=== PATIENT | female | born 1960 | race Caucasian/White ===

== ENCOUNTER 2023-05-11 06:09 | Emergency (ER) | payer OTHER, SELFPAY ==
[2023-05-11] VITALS (7 sets, daily range): BP systolic 119–139; BP diastolic 58–63; PULSE 56–62; RESP 16–32; TEMP 36.4; O2SAT 94–99; BMI 22.7
--- NOTE | 2023-05-11 06:12 | ED.GENADULT ---
HPI - General Adult <DO Krystle Juarez Last Filed: 05/12/23 04:02> General Chief complaint: Syncope Stated complaint: fell hit head on tile floor Time Seen by Provider: 05/11/23 06:12 History of Present Illness HPI narrative: 63F without significant chronic medical history presents with her in the chief complaint of a near syncopal episode this morning and resultant head and face injury. She had been feeling under the weather for the past few days and really has not gotten out of bed much. She has a poor appetite and has had little to eat or drink. She denies any significant fever or chills, no chest pain or shortness of breath but states upon waking this morning at about 530 she felt some discomfort under her ribs and had been dizzy and lightheaded. Upon standing and attempting to use the restroom this morning she felt lightheaded and fell forward striking her face on the ground. She has some dried blood coming from both nostrils, mild headache and some left lateral neck pain. She denies any ongoing chest pain or shortness of breath. She denies any extremity injury. She does not take blood thinners. She is able to breathe through both nostrils. Related Data Previous Rx's Medication Instructions Recorded ondansetron 4 mg disintegrating 4 mg PO Q8H PRN nausea and 05/11/23 tablet vomiting #10 tabs Allergies Allergy/AdvReac Type Severity Reaction Status Date / Time No Known Drug Allergies Allergy Verified 05/11/23 06:34 Review of Systems <DO Krystle Juarez Last Filed: 05/12/23 04:02> Review of Systems Narrative: GENERAL: See HPI HEENT: See HPI RESPIRATORY: See HPI CARDIOVASCULAR: See HPI GASTROINTESTINAL: Denies nausea, vomiting, abdominal pain, diarrhea, constipation, melena. : Denies dysuria, frequency, incontinence, hematuria, urinary retention. MUSCULOSKELETAL: denies weakness, joint pain, or bony pain SKIN: Denies rash, skin lesions, or other NEUROLOGIC: Denies weakness, headache, numbness, change in speech, confusion, seizures, incoordination. PSYCHIATRIC: No concerning psychosocial issues. 12 point review of systems is negative except for those stated above Patient History <DO Krystle Juarez Last Filed: 05/12/23 04:02> Medical History (Updated 05/11/23 @ 08:13 by Lynette Orr DO) Hypothyroid Social History Smoking Status: Never smoker Exam <Edmundo Hernandez DO - Last Filed: 05/12/23 04:02> Narrative Exam Narrative: GENERAL: [63] year old patient appears stated age. Well-developed patient, in mild distress. GCS 15 HEAD: Noted bruising and swelling overlying the bridge of her nose, no other obvious swelling, contusions, lacerations or abrasions, no evidence of depressed skull fracture EYES: Pupils equal round and reactive. No hyphema Extraocular motions intact. No scleral icterus. No injection or drainage. ENT: Swelling over bridge of nose as noted above, fresh clots in bilateral nares, no active bleeding, no obvious nasal septal hematoma. No hemotympanum. Throat without erythema, tonsillar hypertrophy or exudate. Airway patent. NECK: No midline neck pain, step-offs or crepitance, there is some tenderness to the left lateral paraspinal musculature. No pain with axial loading CARDIOVASCULAR: Regular rate and rhythm without murmurs, gallops, or rubs. RESPIRATORY: Clear to auscultation. Breath sounds equal bilaterally. No wheezes, rales, or rhonchi. GASTROINTESTINAL: Abdomen soft, non-tender, nondistended. EXTREMITIES: No edema or joint tenderness. BACK: Nontender without deformity or crepitance. No flank tenderness. NEURO: AOx3. SKIN: No rash or erythema of visible areas Initial Vital Signs Initial Vital Signs: Vital Signs Pulse Rate 56 L 05/11/23 06:19 Respiratory Rate 17 05/11/23 06:19 Pulse Oximetry 94 05/11/23 06:19 <Lynette Orr DO - Last Filed: 05/11/23 08:27> Initial Vital Signs Initial Vital Signs: Vital Signs Pulse Rate 56 L 05/11/23 06:19 Respiratory Rate 17 05/11/23 06:19 Pulse Oximetry 94 05/11/23 06:19 Course <Edmundo Hernandez DO - Last Filed: 05/12/23 04:02> Orders Ordered: Discontinued Medications Sodium Chloride (Normal Saline 0.9%) 1,000 mls @ 1,000 mls/hr IV BOLUS ONE Stop: 05/11/23 07:18 Last Infusion: 05/11/23 08:22 Dose: 0 mls/hr Documented By: AMGabby Admin: 05/11/23 06:40 Dose: 1,000 mls/hr Documented By: JAK Vital Signs Vital signs: Vital Signs - 8 hr 05/11/23 06:23 05/11/23 06:19 05/11/23 06:30 Temperature 97.5 F L Pulse Rate 58 L 56 L 59 L Respiratory Rate 16 17 19 Blood Pressure 132/63 Pulse Oximetry 99 94 96 Oxygen Delivery Method Room Air 05/11/23 06:43 05/11/23 06:43 05/11/23 07:00 Temperature Pulse Rate 59 L 56 L Respiratory Rate 18 32 H Blood Pressure 119/58 L Pulse Oximetry 98 97 Oxygen Delivery Method 05/11/23 07:30 05/11/23 07:30 05/11/23 08:00 Temperature Pulse Rate 57 L Respiratory Rate 18 Blood Pressure 134/60 139/63 Pulse Oximetry 97 Oxygen Delivery Method 05/11/23 08:00 Temperature Pulse Rate 62 Respiratory Rate 22 Blood Pressure Pulse Oximetry 97 Oxygen Delivery Method Room Air <Lynette Orr DO - Last Filed: 05/11/23 08:27> Orders Ordered: Discontinued Medications Sodium Chloride (Normal Saline 0.9%) 1,000 mls @ 1,000 mls/hr IV BOLUS ONE Stop: 05/11/23 07:18 Last Infusion: 05/11/23 08:22 Dose: 0 mls/hr Documented By: Admin: 05/11/23 06:40 Dose: 1,000 mls/hr Documented By: JAK Vital Signs Vital signs: Vital Signs - 8 hr 05/11/23 06:23 05/11/23 06:19 05/11/23 06:30 Temperature 97.5 F L Pulse Rate 58 L 56 L 59 L Respiratory Rate 16 17 19 Blood Pressure 132/63 Pulse Oximetry 99 94 96 Oxygen Delivery Method Room Air 05/11/23 06:43 05/11/23 06:43 05/11/23 07:00 Temperature Pulse Rate 59 L 56 L Respiratory Rate 18 32 H Blood Pressure 119/58 L Pulse Oximetry 98 97 Oxygen Delivery Method 05/11/23 07:30 05/11/23 07:30 05/11/23 08:00 Temperature Pulse Rate 57 L Respiratory Rate 18 Blood Pressure 134/60 139/63 Pulse Oximetry 97 Oxygen Delivery Method 05/11/23 08:00 Temperature Pulse Rate 62 Respiratory Rate 22 Blood Pressure Pulse Oximetry 97 Oxygen Delivery Method Room Air Medical Decision Making <Edmundo Hernandez, DO - Last Filed: 05/12/23 04:02> Lab Data 05/11/23 06:30 05/11/23 06:30 Labs: Lab Results 05/11/23 05/11/23 05/11/23 Range/Units 06:30 06:30 06:30 WBC 6.1 (4.5-11.0) X10^3/uL RBC 5.49 H (4.0-5.2) X10^6/uL Hgb 15.1 (12.0-16.0) g/dL Hct 46.1 H (36-46) % MCV 84.0 (80-100) fL MCH 27.6 (26-34) PG MCHC 32.8 (30-36) % RDW 13.8 (11.6-14.8) % Plt Count 128 L (150-400) X10^3/uL Neut % (Auto) 73.9 (50-75) % Lymph % (Auto) 18.0 L (25-40) % [place] % (Auto) 7.6 (3-14) % Eos % (Auto) 0.3 L (2-4) % Baso % (Auto) 0.2 (0-2) % Neut # (Auto) 4500 (6478-7565) /uL Lymph # (Auto) 1100 (3841-3657) /uL [place] # (Auto) 500 (0-900) /uL Eos # (Auto) 0 (0-450) /uL Baso # (Auto) 0 (0-100) /uL Sodium 140 (137-145) mmol/L Potassium 3.4 (3.4-5.1) mmol/L Chloride 102 (98-107) mmol/L Carbon Dioxide 28 (22-32) mmol/L BUN 23 H (7-17) mg/dL Creatinine 0.82 (0.52-1.04) mg/dL Estimated GFR > 60 (>60) mL/min BUN/Creatinine Ratio 28.0 H (6-22) Glucose 119 H (80-110) mg/dL Calcium 8.3 L (8.4-10.2) mg/dL Magnesium 2.2 (1.6-2.3) mg/dL Total Bilirubin 0.5 (0.2-1.3) mg/dL AST 43 H (14-36) IU/L ALT 30 (<35) IU/L Alkaline Phosphatase 63 (38-126) U/L Total Creatine Kinase 64 (30-135) U/L Troponin I < 0.012 (0.01-0.034) ng/mL Total Protein 7.3 (6.3-8.2) g/dL Albumin 4.2 (3.5-5.0) g/dL Globulin 3.1 (1.7-4.1) g/dL Albumin/Globulin Ratio 1.4 (1.0-2.8) Lipase 95 (23-300) U/L <Lynette Orr, DO - Last Filed: 05/11/23 08:27> Lab Data Labs: Lab Results 05/11/23 05/11/23 05/11/23 Range/Units 06:30 06:30 06:30 WBC 6.1 (4.5-11.0) X10^3/uL RBC 5.49 H (4.0-5.2) X10^6/uL Hgb 15.1 (12.0-16.0) g/dL Hct 46.1 H (36-46) % MCV 84.0 (80-100) fL MCH 27.6 (26-34) PG MCHC 32.8 (30-36) % RDW 13.8 (11.6-14.8) % Plt Count 128 L (150-400) X10^3/uL Neut % (Auto) 73.9 (50-75) % Lymph % (Auto) 18.0 L (25-40) % [place] % (Auto) 7.6 (3-14) % Eos % (Auto) 0.3 L (2-4) % Baso % (Auto) 0.2 (0-2) % Neut # (Auto) 4500 (8784-2186) /uL Lymph # (Auto) 1100 (8470-9785) /uL [place] # (Auto) 500 (0-900) /uL Eos # (Auto) 0 (0-450) /uL Baso # (Auto) 0 (0-100) /uL Sodium 140 (137-145) mmol/L Potassium 3.4 (3.4-5.1) mmol/L Chloride 102 (98-107) mmol/L Carbon Dioxide 28 (22-32) mmol/L BUN 23 H (7-17) mg/dL Creatinine 0.82 (0.52-1.04) mg/dL Estimated GFR > 60 (>60) mL/min BUN/Creatinine Ratio 28.0 H (6-22) Glucose 119 H (80-110) mg/dL Calcium 8.3 L (8.4-10.2) mg/dL Magnesium 2.2 (1.6-2.3) mg/dL Total Bilirubin 0.5 (0.2-1.3) mg/dL AST 43 H (14-36) IU/L ALT 30 (<35) IU/L Alkaline Phosphatase 63 (38-126) U/L Total Creatine Kinase 64 (30-135) U/L Troponin I < 0.012 (0.01-0.034) ng/mL Total Protein 7.3 (6.3-8.2) g/dL Albumin 4.2 (3.5-5.0) g/dL Globulin 3.1 (1.7-4.1) g/dL Albumin/Globulin Ratio 1.4 (1.0-2.8) Lipase 95 (23-300) U/L Imaging Data CT scan - head: Radiologist's Impression: PROCEDURE:? CT HEAD/BRAIN WO CON ? INDICATIONS:? fall with head injury ? TECHNIQUE:? Noncontrast 4.5 mm thick angled axial sections acquired from the foramen magnum to the vertex, with coronal and sagittal reformats.? For radiation dose reduction, the following was used:? automated exposure control, adjustment of mA and/or kV according to patient size.? ? COMPARISON:? None. ? FINDINGS:? Image quality:? Excellent.? ? CSF spaces:? Basal cisterns are patent.? No extra-axial fluid collections.? Ventricles are normal in size and shape.? ? Brain:? No midline shift.? No intracranial masses or hemorrhage.? Basal ganglia calcifications.? Miller-white matter interface is within normal limits.? Cortical sulci are somewhat prominent.? ? Skull and face:? Calvarium and visualized facial bones are intact, without suspicious lesions.? ? Sinuses:? Visualized sinuses and mastoids are clear.? ? IMPRESSION:? No acute intracranial abnormality. ? This report is concordant with the overnight preliminary interpretation. ? ? Dictated by: Óscar Quesada M.D. on 05/11/2023 at 7:44 ? ? Approved by: Óscar Quesada M.D. on 05/11/2023 at 7:46? CT - cervical spine: Radiologist's Impression: PROCEDURE:? CT CERVICAL SPINE WO CON ? INDICATIONS:? fall with head/neck pain ? TECHNIQUE:? Noncontrast 3 mm thick sections acquired from the skull base to the T4 level.? Sagittal and coronal reformats were then constructed.? For radiation dose reduction, the following was used:? automated exposure control, adjustment of mA and/or kV according to patient size.? ? COMPARISON:? None. ? FINDINGS:? Image quality:? Excellent.? ? Bones:? No fractures or dislocations.? Mild to moderate degenerative changes in the cervical spine most pronounced at C5-C6.? Visualized superior ribs are intact.? ? Soft tissues:? Prevertebral soft tissues are normal in thickness.? Thyroidectomy.? No paravertebral hematomas.? No apical pneumothoraces.? Pleural apical scarring.? ? ? IMPRESSION:? No acute osseous abnormality. [id number] degenerative changes in the cervical spine most pronounced at C5-C6. ? This report is concordant with the overnight preliminary interpretation. ? ? ? Dictated by: Óscar Quesada M.D. on 05/11/2023 at 7:46 ? ? Approved by: Óscar Quesada M.D. on 05/11/2023 at 7:49 CT face: Radiologist's Impression: PROCEDURE:? CT FACIAL BONES WO CON ? INDICATIONS:? fall with facial injury ? TECHNIQUE:? Noncontrast 2.5 mm thick axial images acquired from the mandible through the frontal sinuses, with coronal and sagittal reformatting.? For radiation dose reduction, the following was used:? automated exposure control, adjustment of mA and/or kV according to patient size.? ? COMPARISON:? None. ? FINDINGS:? Image quality:? Excellent.? ? Bones and teeth:? Comminuted nasal bone fracture.? Mild soft tissue swelling.? Orbital harrell are intact.? Sinus harrell show no fracture or deformity.? Visualized portions of the mandible demonstrate no fractures or subluxation.? Zygomatic arches are intact.? Pterygoid plates are intact.? Visualized portions of the skull base and auditory canals are intact.? ? Sinuses:? Minimal mucosal thickening in the right maxillary sinus.? Paranasal sinuses are otherwise aerated, without fluid levels or mucoceles.? Mastoid air cells are aerated.? ? Soft tissues:? No edema, masses, or fluid collections.? No enlarged lymph nodes.? No soft tissue lacerations or debris.? ? Vascular:? Visualized vascular structures appear normal in the absence of contrast.? Bony vascular foramina and canals are intact.? ? IMPRESSION:? Comminuted nasal bone fracture. ? Minimal mucosal thickening in the right maxillary sinus. ? This report is concordant with the overnight preliminary interpretation. ? Dictated by: Óscar Quesada M.D. on 05/11/2023 at 7:51 ?? ECG Data Interpretation: Sinus rhythm rate 58 SC interval 166 QRS [address] changes is incomplete right bundle no priors to compare MDM Narrative Medical decision making narrative: Patient signed out to me by Dr. Hernandez I have seen evaluated patient myself. Patient has diagnosed with COVID about 4 days ago. She is had high fevers some nausea vomiting and decreased intake. This morning she got up felt very dizzy and fell landing on her face. CT confirms a comminuted nasal bone fracture but no other injury. Blood work is overall reassuring without significant leukocytosis anemia or sign GRACIE. Symptoms consistent with a vasovagal episode. She is given 1 L of fluid overall feeling better. No need for further workup or evaluation. Discharge Plan Departure Patient Disposition: Home Clinical Impression: Vasovagal syncope, Fracture of nasal bone Instructions: DI for Syncope in Adults (Fainting), Nose Fracture Activity Restrictions/Additional Instructions: *You have been diagnosed with near syncope *What to do: Increase fluid intake as tolerated recommend Pedialyte or like product. Supportive care only. Do not blow your nose only dab it. *Continue to take medications as directed Zofran 4 mg every 8 hours if needed for nausea vomiting Tylenol 1000 mg every 6 hours if needed for pain or fever Motrin 600 mg every 6 hours if needed for pain or fever *Follow up with your primary care provider in 2-3 days or call [phone] You may call ENT to schedule follow-up appointment *Return to ER if you should have increasing pain, decreased intake, passing out, chest pain palpitations or any new, worsening or concerning symptoms Prescriptions: New ondansetron 4 mg tablet,disintegrating 4 mg PO Q8H PRN (Reason: nausea and vomiting) Qty: 10 0RF Referrals: Dyan Snyder MD [Primary Care Provider] - Shamar Guerrero MD [Physician] - Stand Alone Forms: Patient Portal/API
--- NOTE | 2023-05-11 06:19 | DI.CT.S_ITS ---
PROCEDURE: CT FACIAL BONES WO CON INDICATIONS: fall with facial injury TECHNIQUE: Noncontrast 2.5 mm thick axial images acquired from the mandible through the frontal sinuses, with coronal and sagittal reformatting. For radiation dose reduction, the following was used: automated exposure control, adjustment of mA and/or kV according to patient size. COMPARISON: None. FINDINGS: Image quality: Excellent. Bones and teeth: Comminuted nasal bone fracture. Mild soft tissue swelling. Orbital harrell are intact. Sinus harrell show no fracture or deformity. Visualized portions of the mandible demonstrate no fractures or subluxation. Zygomatic arches are intact. Pterygoid plates are intact. Visualized portions of the skull base and auditory canals are intact. Sinuses: Minimal mucosal thickening in the right maxillary sinus. Paranasal sinuses are otherwise aerated, without fluid levels or mucoceles. Mastoid air cells are aerated. Soft tissues: No edema, masses, or fluid collections. No enlarged lymph nodes. No soft tissue lacerations or debris. Vascular: Visualized vascular structures appear normal in the absence of contrast. Bony vascular foramina and canals are intact. IMPRESSION: Comminuted nasal bone fracture. Minimal mucosal thickening in the right maxillary sinus. This report is concordant with the overnight preliminary interpretation. Dictated by: Óscar Quesada M.D. on 05/11/2023 at 7:51 Approved by: Óscar Quesada M.D. on 05/11/2023 at 7:59
--- NOTE | 2023-05-11 06:21 | DI.CT.S_ITS ---
PROCEDURE: CT CERVICAL SPINE WO CON INDICATIONS: fall with head/neck pain TECHNIQUE: Noncontrast 3 mm thick sections acquired from the skull base to the T4 level. Sagittal and coronal reformats were then constructed. For radiation dose reduction, the following was used: automated exposure control, adjustment of mA and/or kV according to patient size. COMPARISON: None. FINDINGS: Image quality: Excellent. Bones: No fractures or dislocations. Mild to moderate degenerative changes in the cervical spine most pronounced at C5-C6. Visualized superior ribs are intact. Soft tissues: Prevertebral soft tissues are normal in thickness. Thyroidectomy. No paravertebral hematomas. No apical pneumothoraces. Pleural apical scarring. IMPRESSION: No acute osseous abnormality. [id number] degenerative changes in the cervical spine most pronounced at C5-C6. This report is concordant with the overnight preliminary interpretation. Dictated by: Óscar Quesada M.D. on 05/11/2023 at 7:46 Approved by: Óscar Quesada M.D. on 05/11/2023 at 7:49
--- NOTE | 2023-05-11 06:21 | DI.CT.S_ITS ---
PROCEDURE: CT HEAD/BRAIN WO CON INDICATIONS: fall with head injury TECHNIQUE: Noncontrast 4.5 mm thick angled axial sections acquired from the foramen magnum to the vertex, with coronal and sagittal reformats. For radiation dose reduction, the following was used: automated exposure control, adjustment of mA and/or kV according to patient size. COMPARISON: None. FINDINGS: Image quality: Excellent. CSF spaces: Basal cisterns are patent. No extra-axial fluid collections. Ventricles are normal in size and shape. Brain: No midline shift. No intracranial masses or hemorrhage. Basal ganglia calcifications. Miller-white matter interface is within normal limits. Cortical sulci are somewhat prominent. Skull and face: Calvarium and visualized facial bones are intact, without suspicious lesions. Sinuses: Visualized sinuses and mastoids are clear. IMPRESSION: No acute intracranial abnormality. This report is concordant with the overnight preliminary interpretation. Dictated by: Óscar Quesada M.D. on 05/11/2023 at 7:44 Approved by: Óscar Quesada M.D. on 05/11/2023 at 7:46
[2023-05-11 06:40] LABS: Add Manual Diff / Slide Review NO; Basophils Absolute Auto 0 /uL (0-100); Basophils Percent Auto 0.2 % (0-2); Eosinophils Absolute Auto 0 /uL (0-450); Eosinophils Percent Auto 0.3 % (2-4); Hematocrit 46.1 % (36-46); Hemoglobin 15.1 g/dL (12.0-16.0); Lymphocytes Absolute Auto 1100 /uL (1100-4500); Mean Corpuscular HGB Conc 32.8 % (30-36); Mean Corpuscular Hemoglobin 27.6 PG (26-34); Monocytes Absolute Auto 500 /uL (0-900); Monocytes Percent Auto 7.6 % (3-14); Neutrophils Absolute Auto 4500 /uL (1500-7000); Neutrophils Percent Auto 73.9 % (50-75); Platelet Count 128 X10^3/uL (150-400); Red Blood Cell Count 5.49 X10^6/uL (4.0-5.2); Red Cell Distribution Width 13.8 % (11.6-14.8); White Blood Cell Count 6.1 X10^3/uL (4.5-11.0)
[2023-05-11] MEDS: SODIUM CHLORIDE 0.9% 1,000 ML 1000 ML IV (06:40)
[2023-05-11 06:51] LABS: Alanine Aminotransferase 30 IU/L (<35); Albumin 4.2 g/dL (3.5-5.0); Albumin Globulin Ratio 1.4 (1.0-2.8); Alkaline Phosphatase 63 U/L (38-126); Aspartate Aminotransferase 43 IU/L (14-36); Bilirubin Total 0.5 mg/dL (0.2-1.3); Blood Urea Nitrogen 23 mg/dL (7-17); Calcium 8.3 mg/dL (8.4-10.2); Carbon Dioxide 28 mmol/L (22-32); Chloride 102 mmol/L (98-107); Creatine Kinase 64 U/L (30-135); Estimated Glomerular Filt Rate > 60 mL/min (>60); Globulin 3.1 g/dL (1.7-4.1); Glucose 119 mg/dL (80-110); HEMOLYSIS 23 (0-50); Lipase 95 U/L (23-300); Magnesium 2.2 mg/dL (1.6-2.3); Potassium 3.4 mmol/L (3.4-5.1); Sodium 140 mmol/L (137-145); Total Protein 7.3 g/dL (6.3-8.2)
[2023-05-11 07:03] LABS: Troponin I < 0.012 ng/mL (0.01-0.034)
== END 2023-05-11 08:30 | disposition home or self-care (01) ==
PROVIDERS: Emergency Medicine; Emergency Provider Emergency Medicine; PCP Family Medicine
DX: S02.2XXA Fracture of nasal bones, initial encounter for closed fracture (principal); R55 Syncope and collapse
CPT/HCPCS: 36415; 70450; 70486; 72125; 80053; 82550; 83690; 83735; 84484; 85025; 93005; 93010; 99284